=== PATIENT | female | born 1945 | race Caucasian/White ===

== ENCOUNTER 2020-04-15 14:38 | Emergency (ER) | payer MEDICARE, BC ==
--- NOTE | 2020-04-15 16:00 | CT ---
BRAIN CT WITHOUT IV CONTRAST: History: Injury from a fall. FINDINGS: Minimal left parietal scalp soft tissue swelling. No focal mass or midline shift. No intra or extraax ial hemorrhage. Sinuses and mastoids are clear of acute process. IMPRESSION: No significant acute intracranial process. No mass or bleed. POS: [facility]
== END 2020-04-15 16:29 | disposition home or self-care (01) ==
LOC: ERS 14:38
DX: S00.83XA Contusion of other part of head, initial encounter (principal); I48.91 Unspecified atrial fibrillation; M19.90 Unspecified osteoarthritis, unspecified site; Z79.01 Long term (current) use of anticoagulants; Z79.899 Other long term (current) drug therapy; W01.198A Fall on same level from slipping, tripping and stumbling with subsequent striking against other object, initial encounter
CPT/HCPCS: 70450

== ENCOUNTER 2021-10-04 13:20 | Emergency (ER) | payer OTHER, MEDICARE, BC ==
[2021-10-04] MEDS ORDERED: Bacitracin 1 PK ONE (13:45)
== END 2021-10-04 15:29 | disposition home or self-care (01) ==
LOC: ERS 13:20
DX: S09.90XA Unspecified injury of head, initial encounter (principal); S00.83XA Contusion of other part of head, initial encounter; S00.11XA Contusion of right eyelid and periocular area, initial encounter; S40.211A Abrasion of right shoulder, initial encounter; S50.01XA Contusion of right elbow, initial encounter; S60.031A Contusion of right middle finger without damage to nail, initial encounter; S80.211A Abrasion, right knee, initial encounter; I48.91 Unspecified atrial fibrillation; Z79.01 Long term (current) use of anticoagulants; Z79.899 Other long term (current) drug therapy; W01.10XA Fall on same level from slipping, tripping and stumbling with subsequent striking against unspecified object, initial encounter
CPT/HCPCS: 70450; 70486; 72125